=== PATIENT | male | born 1995 | race Caucasian/White ===

== ENCOUNTER 2018-09-17 10:25 | Emergency (ER) | payer OTHER ==
[2018-09-17 11:36] LABS: ADD MAN DIFF? NO
[2018-09-17] MEDS: SOD CHLORIDE 0.9% 1,000 ML IV ×2 (11:36→13:12)
[2018-09-17] MEDS: ONDANSETRON 4 MG INJ IV (11:37)
[2018-09-17] MEDS: morphine 4 MG/ML VIAL IV (11:37)
[2018-09-17 11:41] LABS: WHITE BLOOD COUNT 19.4 10^3/ul (4.8-10.8)
[2018-09-17 11:41] LABS: ABNORMAL IP MESSAGE 1; ADD UMIC NO; BASOPHILS % 0.2 % (0.0-2.0); EOSINOPHILS % 0.1 % (0.0-7.0); HEMATOCRIT 39.3 % (42.0-52.0); HEMOGLOBIN 13.7 g/dl (14.0-18.0); LYMPHOCYTES # 1.5 10^3/ul (0.8-2.9); LYMPHOCYTES % 7.9 % (15.0-51.0); MEAN CORPUSCULAR HEMOGLOBIN 31.3 pg (29.0-33.0); MEAN CORPUSCULAR HGB CONC 34.9 g/dl (32.0-37.0); MEAN CORPUSCULAR VOLUME 89.7 fl (82.0-101.0); MEAN PLATELET VOLUME 12.3 fl (7.4-10.4); MONOCYTE # 1.6 10^3/ul (0.3-0.9); MONOCYTES % 8.1 % (0.0-11.0); NEUTROPHIL # 16.1 10^3/ul (1.6-7.5); NEUTROPHILS % 82.9 % (39.0-77.0); PLATELET COUNT 137 10^3/UL (140-415); POSITIVE DIFF @See below; RED BLOOD COUNT 4.38 10^6/ul (4.70-6.10); RED CELL DISTRIBUTION WIDTH 11.2 % (11.5-14.5); UR ASCORBIC ACID NEGATIVE (NEGATIVE); UR BILIRUBIN (Dip) NEGATIVE (NEGATIVE); UR BLOOD (Dip) NEGATIVE (NEGATIVE); UR CLARITY CLEAR (CLEAR); UR COLOR YELLOW (YELLOW); UR GLUCOSE (Dip) NEGATIVE (NEGATIVE); UR KETONES (Dip) TRACE mg/dL (NEGATIVE); UR LEUKOCYTE ESTERASE (Dip) NEGATIVE Leu/ul (NEGATIVE); UR NITRITE (Dip) NEGATIVE (NEGATIVE); UR TOTAL PROTEIN (Dip) NEGATIVE (NEGATIVE); UR UROBILINOGEN (Dip) 1+ mg/dL (NEGATIVE)
[2018-09-17 11:57] LABS: LACTIC ACID 1.8 mmol/L (0.5-2.0)
[2018-09-17 11:59] LABS: ALANINE AMINOTRANSFERASE 10 IU/L (13-69); ALBUMIN 3.7 g/dl (3.3-4.9); ALKALINE PHOSPHATASE 69 IU/L (42-121); AMYLASE 63 U/L (11-123); ANION GAP 10 (5-13); ASPARTATE AMINO TRANSFERASE 28 IU/L (15-46); BILIRUBIN,INDIRECT 0.6 mg/dl (0-1.1); BILIRUBIN,TOTAL 0.6 mg/dl (0.2-1.3); BLOOD UREA NITROGEN 11 mg/dl (7-20); CALCIUM 9.3 mg/dl (8.4-10.2); CARBON DIOXIDE 28 mmol/L (21-31); CHLORIDE 101 mmol/L (97-110); Estimated GFR > 60 mL/min (>60); GLUCOSE 136 mg/dl (70-220); LIPASE 77 U/L (23-300); POTASSIUM 3.5 mmol/L (3.5-5.1); SODIUM 139 mmol/L (135-144); TOTAL PROTEIN 7.4 g/dl (6.1-8.1)
[2018-09-17] MEDS: SOD CHLORIDE 0.9% 100 ML (12:37)
[2018-09-17] MEDS: IODIXANOL LOCM 100 ML BTL (12:37)
[2018-09-17] MEDS: IOHEXOL 300MG/ML 150 ML BTL (12:38)
[2018-09-17] MEDS: ACETAMINOPHEN 500 MG TAB PO (13:02)
== END 2018-09-17 15:04 | disposition home or self-care (01) ==
LOC: FTE 10:25
DX: B34.9 Viral infection, unspecified (principal); A08.4 Viral intestinal infection, unspecified
CPT/HCPCS: 74177; 80053; 81003; 82150; 83605; 83690; 85025; 87040; 96361; 96374; 96375; 99285-25